=== PATIENT | female | born 1970 ===

== ENCOUNTER 2024-08-25 02:44 | Outpatient (CLI) | payer BC, SELFPAY ==
--- NOTE | 2024-08-25 | DI.RAD_ITS ---
Exam(s) RF BARIUM SWALLOW EXAM: RF BARIUM SWALLOW CLINICAL HISTORY: Dysphagia, R13.10; nontoxic diffuse goiter, E04.0 TECHNIQUE: 2D and realtime digital imaging was performed. CONTRAST MATERIAL: Thick and thin barium and barium tablet were administered. COMPARISON: No exams were available for comparison FINDINGS: The PA and lateral chest films show normal heart size and clear lung coats. The lateral roller gold leaf view of the neck is unremarkable. Esophagus: The patient swallowed barium without difficulty. Noevidence for mucosal erosions. Nofold thickening. No mass is visible. Nostricture. Prominent cricopharyngeus impression. Motility: There is a normal primary stripping wave. Mild tertiary contractions were noted. There is no hiatal hernia. Moderategastroesophageal reflux was observed during the exam. The stomach a and duodenum are unremarkable as visualized. IMPRESSION: Prominent cricopharyngeal impression. Moderate gastroesophageal reflux. RADIATION DOSE DELIVERED: [email or web address] Max=12.46 mGy
[2024-08-25] MEDS: Barium Sulfate 700 MG TAB PO (10:19)
[2024-08-25] MEDS: Simethicone/Sod Bicarb/Cit Ac, 4 gram PACKET 1 PACKET PO (10:21)
[2024-08-25] MEDS: Barium Sulfate 98% W/W 140 ML BTL PO (10:22)
[2024-08-25] MEDS: Barium Sulfate 60% W/V 355 ML BTL PO (10:23)
== END 2024-08-25 03:04 ==
LOC: DI 02:44
PROVIDERS: PCP Internal Medicine; Visit Provider Family Medicine
DX: J39.2 Other diseases of pharynx (principal); E04.0 Nontoxic diffuse goiter
CPT/HCPCS: 74221; J3490